=== PATIENT | male | born 1955 | race Caucasian/White ===

== ENCOUNTER 2016-09-28 06:50 | Outpatient (CLI) | payer BC ==
[~2016-09-28] VITALS: Ht 182.9 cm; Wt 95.5 kg
--- NOTE | ~2016-09-28 | HEMODYNAMI ---
PATIENT:LINA PHILLIPS MEDICAL RECORD: [id number] : 57 LOCATION:[facility] ADMISSION DATE: 09/28/16 Generatedon:09/28/201610:34 Patient name: LINA PHILLIPS Patient #: [id number] SSN: : 1955 Date of study: 09/28/2016 Page: Of Hemodynamic Procedure Report Patient Data Patient Demographics Procedure consent was obtained First Name: LINA Gender: Male Last Name: JACQUELINE : 1955 Patient #: [id number] Age: 61 year(s) Race: Unknown Additional ID: [id number] Contact details [address]: [address] [place] [address] State: [place] City: [place] Zip code: [address] Past Medical History Allergies: No known allergies Admission Admission Data Admission Date: 09/28/2016 Admission Time: 6:50 Lab Results Lab Result Date: 09/28/2016 Lab Result Time: 0:00 Biochemistry Name Units Result Min Max BUN mg/dl 13 --(--*-)-- 7 18 Creatinine mg/dl 0.9 --(-*--)-- 0.6 1.3 CBC Name Units Result Min Max Hemoglobin g/dl 14.8 --(-*--)-- 13.5 17.5 Procedure Procedure Types Cath Procedure Diagnostic Procedure C [facility] w/Coronaries PCI Procedure SVG-BMS/ARIS Initial Miscellaneous Procedures Moderate Sedation up to 45 minutes Procedure Description Procedure Date Procedure Date: 09/28/2016 Procedure Start Time: 9:47 Procedure End Time: 10:24 Procedure Staff Name Function Jacinto Glover MD Performing Physician Merline Pacheco RT Scrub Erick Fong RN Nurse Jesus Thakur RT Monitor Procedure Data Cath Procedure Fluoroscopy Diagnostic fluoroscopy Total fluoroscopy Time: 8.4 time: 8.4 min min Diagnostic fluoroscopy Total fluoroscopy dose: dose: 1132 mGy 1132 mGy Contrast Material Contrast Material Type Amount (ml) Isovue 300 170 Entry Location Entry Primary Successful Side Size Upsize Upsize Entry Closure Succes sful Closure Location (Fr) 1 (Fr) 2 (Fr) Remarks Device Remarks Femoral Right 5 Fr 6 Fr artery Short Diagnostic catheters Device Type Used For End Catheter Placement Cordis 5Fr JL 4.0 Left Coronary Catheter (MP) Angiography Diagnostic Infinity 5Fr Right Coronary AR 2 MOD catheter Angiography Diagnostic Infinity 5Fr SVG Angiography IM catheter Cordis 5Fr Pigtail LV Angiography Catheter (MP) Procedure Complications No complications Procedure Medications Medication Administration Route Dosage Oxygen NC 2 l/min Heparin Flush Bag added to field 2 bags (1000units/500ml NS) 0.9% NaCl I.V. 100 ml/hr Fentanyl I.V. 50 mcg Versed I.V. 1 mg Fentanyl I.V. 50 mcg Versed I.V. 1 mg Fentanyl I.V. 50 mcg Fentanyl I.V. 50 mcg Heparin Bolus I.V. 9500 units Cardene I.C. 300 mcg Integrilin (Bolus I.V. 8.5 ml 2mg/ml) Brilinta P.O. 180 mg Hemodynamics Rest HGB: 14.8 (g/dl) Heart Rate: 53 (bpm) Pressure Samples Time Site Value (mmHg) Purpose Heart Use Rate(bpm) 10:00 LV 128/8,27 EDP 62 10:01 AO 135/75(96) Pullback 62 10:01 LV 124/11,16 Pullback 62 Gradients Valve Time Site 1 Site 2 Mean SEP/DFP Peak To Heart Use (mmHg) (sec/min) Peak Rate (mmHg) (bpm) Aortic 10:01 LV AO 0 5 0 62 124/11,16 135/75(96) Calculations Valve P-P Mean Valve Index Valve Source Name Gradient Area Flow (cm2) Aortic 0 0 0 0 Snapshots Pre Cath Intra NCS Post Cath Vital Signs Time Heart Resp SPO2 etCO2 [id number] NIBP (mmHg) Rhythm Pain Sedation Rate (ipm) (%) (mmHg) (mmHg) Status Level (bpm) 9:34:37 57 17 100 0 0 128/77(95) NSR 0 (11) 10(A) , No pain 9:38:55 53 18 98 0 0 116/64(101) NSR 0 (11) 10(A) , No pain 9:43:03 53 18 98 0 0 117/77(86) NSR 0 (11) 10(A) , No pain 9:47:15 57 18 99 0 0 117/68(78) NSR 0 (11) 10(A) , No pain 9:51:27 54 18 90 0 0 119/68(96) NSR 0 (11) 9(A) , No pain 9:55:39 62 19 93 0 0 120/74(97) NSR 0 (11) 9(A) , No pain 9:59:49 58 17 95 0 0 121/82(96) NSR 0 (11) 9(A) , No pain 10:04:03 61 16 99 0 0 132/66(86) NSR 0 (11) 9(A) , No pain 10:08:19 55 16 93 0 0 133/75(100) NSR 0 (11) 9(A) , No pain 10:12:31 60 17 93 0 0 123/79(101) NSR 0 (11) 9(A) , No pain 10:16:43 70 16 98 0 0 142/74(113) NSR 0 (11) 9(A) , No pain 10:21:35 70 19 97 0 0 132/88(115) NSR 0 (11) 9(A) , No pain Medications Time Medication Route Dose Verified Delivered Reason Notes Effectiveness by by 9:35:09 Oxygen NC 2 Erick Erick Per physician l/min Ajit Fong RN RN 9:35:22 Heparin Flush added 2 Erick Erick used for Bag to bags Ajit Fong RN procedure (1000units/500ml field RN NS) 9:40:36 0.9% NaCl I.V. 100 Erick Erick Per physician ml/hr Ajit Fong RN RN 9:40:43 Fentanyl I.V. 50 Erick Erick for sedation mcg Ajit Fong RN RN 9:40:51 Versed I.V. 1 mg Reick Erick for sedation Ajit Fong RN RN 9:47:01 Fentanyl I.V. 50 Erick Erick for sedation mcg Ajit Fong RN RN 9:47:06 Versed I.V. 1 mg Erick Erick for sedation Ajit Fong RN RN 10:02:56 Fentanyl I.V. 50 Erick Erick for sedation mcg Ajit Fong RN RN 10:05:35 Fentanyl I.V. 50 Erick Erick for sedation mcg Ajit Fong RN RN 10:05:48 Heparin Bolus I.V. 9500 Erick Suarez for units Ajit Fong RN anticoagulation RN 10:15:23 Cardene I.C. 300 Erick Kennedyic Per physician ganesh Glover MD RN 10:23:38 Integrilin I.V. 8.5 Erick Suarez for Wasted (Bolus 2mg/ml) ml Ajit Fong RN antiplatelet 1.5mL of RN therapy integrilin bolus 10:25:12 Brilinta P.O. 180 Erick Suarez for mg Ajit Fong RN antiplatelet RN therapy Procedure Log Time Note 9:10:40 Erick Fong RN sent for patient. Start room use. 9:16:41 Time tracking: Regular hours 9:16:46 Plan of Care:Hemodynamics will remain stable., Cardiac rhythm will remain stable., Comfort level will be maintained., Respiratory function will remain adequate., Patient/ family verbilizes understanding of procedure., Procedure tolerated without complication., Recovers from procedure without complications.. 9:24:43 Patient received from Pre/Post Procedure Room to [facility] 1 Alert and oriented. Tansferred to table in Supine position. 9:24:44 Warm blankets applied, and elia hugger turned on for patient comfort. 9:24:44 Correct patient and procedure confirmed by team. 9:24:46 Signed procedure consent form obtained from patient. 9:24:47 ECG and BP/O2 sat monitors applied to patient. 9:24:48 Full Disclosure recording started 9:33:29 Vital chart was started 9:33:37 Baseline sample Acquired. 9:33:45 Rhythm: sinus rhythm 9:34:00 H&P Date Dictated: 09/22/2016 Within 30 days and on chart., H&P Addendum completed by physician on day of procedure. (MUST COMPLETE FOR ALL OUTPATIENTS). 9:34:52 Pre-procedure instructions explained to patient. 9:34:54 Pre-op teaching completed and patient verbalized understanding. 9:34:56 Family in patients room. 9:35:09 Oxygen 2 l/min NC was administered by Erick Fong RN; Per physician; 9:35:22 Heparin Flush Bag (1000units/500ml NS) 2 bags added to field was administered by Erick Fong RN; used for procedure; 9:36:16 Patient NPO since Midnight. 9:36:31 Patient allergic to No known allergies 9:36:48 Is the patient allergic to Iodine/contrast media? No. 9:36:53 Is patient on blood thinner?No 9:36:55 Patient diabetic? No. 9:36:56 ----Pre-sedation anethsthesia assessment.---- 9:37:10 Previous problem with sedation/anesthesia? No ? 9:37:12 Snore? Yes 9:37:13 Sleep apnea? Yes 9:37:17 Deviated septum? No 9:37:18 Opens mouth fully? Yes 9:37:19 Sticks out tongue? Yes 9:37:21 Airway obstruction? No ? 9:37:24 Dentures? No ? 9:37:32 Pre procedure: right dorsailis pedis pulse 1+ Palpable, but thready & weak; easily obliterated 9:37:36 Patient pain scale 0/10 ?. 9:37:41 IV patent on arrival in left hand with 0.9% NaCl at 10ml/hr. 9:38:15 Lab Result : BUN 13 mg/dl 9:38:15 Lab Result : Hemoglobin 14.8 g/dl 9:38:15 Lab Result : Creatinine 0.9 mg/dl 9:38:18 Lab results completed and on chart. 9:38:23 Right groin area was prepped with chlora-prep and draped in sterile fashion 9:38:23 Alarms reviewed by R. N. 9:38:24 Sharps counted by scrub and verified by R.N. 9:38:25 --------ALL STOP TIME OUT------ 9:38:26 Final Timeout: patient, procedure, and site verified with staff and physician. All members of the team are in agreement. 9:38:27 Right groin site verified by team. 9:38:30 Physical assessment completed. ASA score P 2 - A patient with mild systemic disease as per Jacinto Glover MD. 9:38:34 Sedation plan: IV Moderate Sedation Versed, Fentanyl 9:38:37 Use device set Femoral Dx 9:38:38 Acist Syringe opened to sterile field. 9:38:38 Bag Decanter opened to sterile field. 9:38:39 Medline Cath Pack opened to sterile field. 9:38:39 Terumo 5Fr Max Sheath opened to sterile field. 9:38:40 St Yuniel 260cm J .035 wire opened to sterile field. 9:38:41 Acist Hand Control opened to sterile field. 9:38:41 Acist Manifold opened to sterile field. 9:38:41 Diagnostic Infinity 5Fr Multipack catheter opened to sterile field. 9:38:42 Tegaderm 4 x 4 opened to sterile field. 9:40:36 0.9% NaCl 100 ml/hr I.V. was administered by Erick Fong RN; Per physician; 9:40:43 Fentanyl 50 mcg I.V. was administered by Erick Fong RN; for sedation; 9:40:51 Versed 1 mg I.V. was administered by Erick Fong RN; for sedation; 9:44:57 Zero performed for pressure channel P1 9:46:57 Procedure started. 9:47:01 Fentanyl 50 mcg I.V. was administered by Erick Fong RN; for sedation; 9:47:06 Versed 1 mg I.V. was administered by Erick Fong RN; for sedation; 9:47:12 Local anesthetic to right femoral artery with Lidocaine 2% by Jacinto Glover MD.INITIAL ACCESS ONLY 9:47:34 A 5 Fr sheath was inserted into the Right Femoral artery 9:50:06 A Cordis 5Fr JL 4.0 Catheter (MP) was advanced over the wire and used for Left Coronary Angiography. 9:50:48 LCA angiography performed. 9:52:04 Catheter removed. 9:52:54 A Diagnostic Infinity 5Fr AR 2 MOD catheter was advanced over the wire and used for Right Coronary Angiography. 9:53:00 RCA angiography performed. 9:53:03 SVG to RCA angiography performed. 9:54:57 SVG to Circ angiography performed. 9:55:34 Catheter removed. 9:55:43 A Diagnostic Infinity 5Fr IM catheter was advanced over the wire and used for SVG Angiography. 9:55:48 [place] to LAD angiography performed. 9:58:18 Catheter removed. 9:58:26 A Cordis 5Fr Pigtail Catheter (MP) was advanced over the wire and used for LV Angiography. 9:58:32 LV angiography performed. 9:58:35 LV gram done using LYNN 9:58:39 Injector settings: Ml/sec: 10, Volume: 20, 9:59:05 LV hemodynamics recorded. 10:00:59 EF : 45 % 10:01:22 Catheter removed. 10::29 Sheath upsized to a 6 Fr Short. 10:01:37 ACC PCI Site: mRCA has 99% stenosis. 10:01:39 ACC Pre-intervention BHARTI Flow is 3. 10:01:54 6 Fr MB1 guide catheter was inserted over the wire 10:02:20 High Pressure Extension Tubing (Adalberto) opened to sterile field. 10:02:20 Terumo 6Fr Max Sheath opened to sterile field. 10:02:20 Flat.to BasixCompak Inflation Kit opened to sterile field. 10:02:21 Randall BMW [place] 2 J-tip 300cm 0.014 guide wir opened to sterile field. 10:02:21 Medtronic Launcher 6Fr MB 1 guide catheter opened to sterile field. 10:02:56 Fentanyl 50 mcg I.V. was administered by Erick Fong RN; for sedation; 10:05:35 Fentanyl 50 mcg I.V. was administered by Erick Fong RN; for sedation; 10:05:48 Heparin Bolus 9500 units I.V. was administered by Erick Fong RN; for anticoagulation; 10:07:03 BMW2 wire advanced. 10:09:33 Inflation number: 1 A Hawi JAMF Software Cobb 2.0 X 20 balloon was prepped and advanced across the Aorta Right -> Dist RCA, then inflated to 10 AMY for 0:15 (min:sec). 10:09:40 Balloon removed over the wire. 10:12:49 Inflation Number: 2 A Medtronic Integrity 3.0 X 15 stent was prepped and advanced across the Aorta Right -> Dist RCA. The stent was deployed at 14 AMY for 0:11 (min:sec). 10:13:54 Stent catheter was removed intact over wire. 10:15:23 Cardene 300 mcg I.C. was administered by Jacinto Glover MD; Per physician; 10:18:31 Wire removed. 10:18:33 Guide catheter removed. 10:18:42 Cordis 6Fr Exoseal opened to sterile field. 10:20:12 Procedure ended.(Physican Out) 10:21:12 Fluoroscopy time 08.40 minutes. 10:21:48 Fluoroscopy dose: 1132 mGy 10:21:48 Flurop Dose total: 1132 10::53 Contrast amount:Isovue 300 170ml. 10:22:54 Sharps counted by scrub and verified by R.N. 10:23:00 Insertion/operative site no bleeding no hematoma. 10:23:03 Post-op/insertion site Right Femoral artery dressed using a 4 x 4 and Tegaderm. 10:23:19 Post Procedure Pulses reassessed and unchanged 10:23:22 Post procedure: right dorsailis pedis pulse 1+ Palpable, but thready & weak; easily obliterated. 10:23:25 Post procedure rhythm: sinus rhythm 10:23:26 Post procedure instruction explained to patient.Patient verbalizes understanding. 10:23:38 Integrilin (Bolus 2mg/ml) 8.5 ml I.V. was administered by Erick Fong RN; for antiplatelet therapy; Wasted 1.5mL of integrilin bolus 10:23:41 Procedure type changed to Cath procedure, Diagnostic procedure, LHC, LHC w/Coronaries, PCI procedure, SVG-BMS/ARIS Initial, Miscellaneous Procedures, Moderate Sedation up to 45 minutes 10:24:13 Procedure and supply charges have been captured, reviewed, submitted and are correct. 10:24:37 Procedure Complication : No complications 10:24:39 Vital chart was stopped 10:24:40 See physician's report for complete and final results. 10:24:42 Report given to Pre/Post Procedure Room. 10:24:45 Patient transfered to Pre/Post Procedure Room with Stretcher. 10:24:47 Procedure ended. 10:24:47 Full Disclosure recording stopped 10:24:53 ACC-PCI Only Patient was given prescriptions, or instructed by Jacinto Glover MD to start/continue the following medications upon discharge: Brilinta 10:24:55 End room use (Document Last) 10:25:12 Brilinta 180 mg P.O. was administered by Erick Fong RN; for antiplatelet therapy; Intervention Summary Intervention Notes Time ActionType Lesion and Equipment Action# Pressure Duration Attributes Used 10:09:33 Inflate Aorta Right Hawi 1 10 00:15 balloon -> Dist RCA Sci Cobb 2.0 X 20 balloon 10:12:49 [address] stent Aorta Right Amlogictronic 2 14 00:11 -> Dist RCA Integrity 3.0 X 15 stent Device Usage Item Name Manufacture Quantity Catalog Number Hospital Part Current Mini mal Lot# / Charge Number Stock Stock Serial# Code Acist Acist 1 [id number] 064264 905481 629460 20 Syringe Medical Systems Inc Bag Microtek 1 2002S 576311 18487 274052 5 Decanter Medical Inc. Medline Cardinal 1 [id number] 174562 22418 641218 5 Cath Pack Health Terumo 5Fr Terumo 1 [id number] 355859 538057 265623 [address] Yuniel St Yuniel 1 036451 454435 884963 169307 30 260cm J .035 wire Acist Hand Acist 1 86967 488431 298833 805122 5 Control Medical Systems Inc Acist Acist 1 87713 254767 057900 159544 5 Manifold Medical Systems Inc Diagnostic Cardinal 1 [id number] 898098 45154 648719 30 Infinity Health 5Fr Multipack catheter Tegaderm 4 3M 1 1626W 198332 238751 532909 5 x 4 Cordis 5Fr Cardinal 1 641758 5 JL 4.0 Health Catheter (MP) Diagnostic Cardinal 1 [id number] 989226 601147 243671 20 Infinity Health 5Fr AR 2 MOD catheter Diagnostic Cardinal 1 [id number] 285160 228519 324056 5 Infinity Health 5Fr IM catheter Cordis 5Fr Cardinal 1 938914 5 Pigtail Health Catheter (MP) High Merit 1 [id number] 153273 49920 180164 10 Pressure Medical Extension Tubing (Glover) Terumo 6Fr Terumo 1 [id number] 516142 805115 018880 40 Max Sheath Merit Merit 1 HG7791 679486 634928 609444 15 BasixCompak Medical Inflation Kit Randall BMW Randall 1 [id number] 455897 598402 199677 5 [place] 2 Vascular J-tip 300cm 0.014 guide wir Medtronic Medtronic 1 [id number] 732692 40111 165317 1 Launcher 6Fr MB 1 guide catheter Hawi Sci Hawi 1 [id number] 813538 545580 883770 1 [id number] [employer] 2.0 X 20 balloon Medtronic Medtronic 1 [id number] 694715 591182 459488 1 [id number] Integrity 3.0 X 15 stent Cordis 6Fr Cardinal 1 EX600 743641 619754 143059 10 [facility] Health Signature Audit Ewing Stage Time Signature Unsigned Intra-Procedure 09/28/2016 Jesus Thakur 10:34:50 AM RT(R) Signatures Monitor : Jesus Thakur RT Signature : Date : Time : [address] [place] [address]
[2016-09-28 07:40] VITALS: BP 136/84; Ht 182.9 cm; Wt 95.5 kg
[2016-09-28] MEDS ORDERED: HYZAAR 50-12.51 TAB PO (07:56)
[2016-09-28] MEDS ORDERED: PREVACID30 MG PO (07:56)
[2016-09-28] MEDS ORDERED: SIMPONI (07:56)
[2016-09-28] MEDS ORDERED: [UNRECOGNIZED DRUG - OTHER] (07:56)
[2016-09-28] MEDS ORDERED: CRESTOR10 MG PO (07:57)
[2016-09-28] MEDS ORDERED: TOPROL XL100 MG PO (07:57)
[2016-09-28] MEDS ORDERED: ARAVA10 MG PO (07:58)
[2016-09-28] MEDS ORDERED: PLAQUENIL200 MG PO (07:58)
[2016-09-28] MEDS ORDERED: CELEBREX200 MG PO (07:59)
[2016-09-28] MEDS ORDERED: LAMISIL250 MG PO (08:00)
[2016-09-28 08:03] LABS: BASOPHILS 1.1 % (0-2); EOSINOPHILS 5.9 % (0-7); HEMATOCRIT 43.2 % (42.0-54.0); HEMOGLOBIN 14.8 g/dL (13.5-17.5); IMMATURE GRANULOCYTES 0.2 % (0-5); LYMPHOCYTES 33.8 % (15-50); MCH 30.2 pg (26.0-34.0); MCHC 34.3 g/dL (31.0-37.0); MCV 88.2 fL (80.0-100.0); MONOCYTES 9.9 % (2-11); NEUTROPHILS 49.1 % (40-80); PLATELET COUNT 170 10x3/uL (130-400); RDW 12.3 % (11.5-14.5); WBC 4.6 10x3/uL (4.8-10.8)
[2016-09-28 08:30] LABS: CALC OSMOLALITY 282 mosm/kg (275-300); CALCIUM 8.7 mg/dL (8.5-10.1); CARBON DIOXIDE 25.9 mmol/L (21.0-32.0); CHLORIDE - SERUM 108 mmol/L (98-107); CREATININE - SERUM 0.9 mg/dL (0.6-1.3); GLUCOSE 96 mg/dL (74-106); POTASSIUM - SERUM 3.9 mmol/L (3.5-5.1); SODIUM 142 mmol/L (136-145); UREA NITROGEN 13 mg/dL (7-18); eGFR NON AFRICAN AMERICAN > 90 mL/min (90-120)
[2016-09-28] MEDS ORDERED: BAYER CHEWABLE81 MG PO (10:50)
--- NOTE | 2016-09-28 11:19 | NUR ---
1055 LYING FLAT, ALL VITALS WNL. NSR ARATE 76 WNO C/O CHEST PAIN. PULSES PALP X 4. R GROIN 6F EXOSEAL C/D/I WITH NO HEMATOMA OR BLEEDING.
--- NOTE | 2016-09-28 14:35 | NUR ---
1125 LYING FLAT, ALL VITALS WNL. NSR RATE 60 W NO C/O CHEST PAIN. PULSES PALP X 4. DR. GIRON AT BEDSIDE SPEAKING WITH FAMILY ABOUT NEED FOR ANOTHER CATH TO TREAT LEFT SIDE. SPOKE WITH MARY IN HIS OFFICE. RESCHEDULED FOR LEFT SIDE PCI ON TUESDAY OCTOBER 13, 2015 TO ARRIVE AT 0630 FOR 0830 PROCEDURE. AT BEDSIDE. 1230 CONTINUES LYING FLAT, VOIDED 500CC YELLOW URINE VIA URINAL. ALL VITALS REMAIN WNL. NSR RATE 62 W NO C/O CHEST PAIN. PULSES PALP X 4. R GROIN EXOSEAL C/D/I WITH NO HEMATOMA OR BLEEDING. EATING TURKEY SANDWICH WITH ASSIST FROM AT BEDSIDE. 1330 LYING FLAT, VITALS WNL. R GROIN C/D/I. DENIES NEEDS AT THIS TIME. 1400 ELEVATED HOB TO 30DEGREES, WILL MONITOR GROIN FOR BLEEDING.
--- NOTE | 2016-09-28 14:52 | NUR ---
PIV REMOVED FROM LEFT HAND WITH BANDAID APPLIED, AMBULATED TO BATHROOM TO VOID. BACK TO BEDSIDE. R GROIN REMAINS C/D/I AFTER AMBULATION. D/C INSTRUCTIONS DISCUSSED WITH PATIENT AND AT BEDSIDE.
--- NOTE | 2016-09-28 15:13 | NUR ---
WHEELED OUT VIA WHEELCHAIR BY CATH TEAM
--- NOTE | 2016-10-05 10:59 | OP ---
PATIENT NAME: LINA PHILLIPS MEDICAL RECORD: [id number] :57 LOCATION:D.CAT ADMISSION DATE: SURGEON: JACKSON GIRON M.D. DATE OF OPERATION: 09/28/2016 REFERRING PHYSICIAN: Dr. Colette Gallegos at [place], [place]. PROCEDURES PERFORMED: 1. Selective coronary angiography. 2. Left heart catheterization with ventriculogram. 3. Bypass angiography. 4. Left internal mammary injection. 5. PTCA and stent placed at the vein graft to the PDA. INDICATION: A 61-year-old gentleman presents with symptoms of accelerating angina. EQUIPMENT USED: Diagnostic 5-Macedonian JL4, AR modified catheter, mammary catheter, pigtail catheter. INTERVENTION: A 6-Macedonian multipurpose guide, BMW guide wire, 2.0 x 20 mm Chippewa balloon, 3.0 x 15 mm Integrity stent. TECHNIQUE: A 5-Macedonian sheath was inserted in retrograde fashion in the right common femoral artery. Next, selective coronary angiography was performed in standard views using 5-Macedonian JL4 and AR modified catheters. Bypass angiography was performed using an AR modified catheter. The internal mammary was selected with internal mammary catheter. Finally, left heart catheterization was performed using pigtail catheter. CORONARY ANATOMY: 1. Left main: Left main trunk is moderate in caliber. It gives rise to the LAD and circumflex. There is no obstruction. 2. LAD: This vessel is large in caliber. It is 100% occluded beyond the first diagonal branch. The first diagonal branch has been stented in the mid segment. There is a focal 90% in-stent restenosis seen. 3. Circumflex: This vessel is moderate in caliber. The first lateral branch is 100% occluded at the origin. The remainder of the circumflex has mild irregularities. 4. Right coronary: This vessel is 100% occluded in mid segment. 5. Saphenous vein graft to PDA. This is a large-caliber graft. The proximal body demonstrates an ulcerated 99% stenosis. There appears to be a diffuse 50% in-stent restenosis seen in the mid body of the graft. 6. Saphenous vein graft to obtuse marginal branch. This graft is diffusely disease, but otherwise patent. It goes to a small branch of the circumflex. 7. Left internal mammary artery to LAD: This graft is widely patent throughout its course. The distal LAD is of good caliber and has no obstruction. 8. Left ventricle: Left ventricle is upper limits of normal size. There is mild hypokinesis noted. Estimated ejection fraction is in the order of 45%. DESCRIPTION OF INTERVENTION: A 100 units per kilogram of heparin was infused. A 6-Macedonian sheath was placed in the right common femoral artery. Next, a 6-Macedonian multipurpose guide was advanced and engaged in the vein graft to the PDA. Next, a BMW guide wire was placed in the distal body of the graft. The lesion was predilated with a 2.0 x 20 mm Chippewa balloon at 12 atmospheres. OPERATIVE REPORT [id number] LINA PHILLIPS Injection revealed sabianist of flow. At this point, a 3.0 x 15 mm Integrity stent was placed across the stenosis and deployed at 14 atmospheres. Injections revealed the stent to be widely patent. However, at this point, the patient had no refill in the graft. He developed ST elevation. At this point, 300 mcg of Cardene was given intracoronary. At this point, the ST elevation resolved and flow was restored to the graft. Final injection revealed brisk flow through the graft and 0% residual stenosis in the stented segment. There appeared to be moderate restenosis involving the stents in the mid body graft. However, it was felt that further dilation might cause no refill at this point. At this point, the guidewire was removed. IMPRESSION: Successful percutaneous transluminal coronary angioplasty and stent in the vein graft to the PDA. PLAN: I will likely stage the diagonal lesion and bring him back in 1 week. I may consider placing a filter wire at that point in the vein graft to the PDA to perform stenting to the in-stent restenosis as well. TRANSINT:[id number] Voice Confirmation ID: [id number] DOCUMENT ID: [id number] JACKSON GIRON M.D. at 1059 CC: [id number] DICTATION DATE: 09/28/16 103 SENIOR PIPING DESIGNER: 09/28/169 DEP CLI 09/28/16 [facility] [address] [place] [address]
== END 2016-09-28 15:14 | disposition home or self-care (01) ==
LOC: D.CATH 06:50 → EDBD 09:00 → D.CATH 15:14
PROVIDERS: Internal Medicine Cardiovascular Disease
DX: I25.710 Atherosclerosis of autologous vein coronary artery bypass graft(s) with unstable angina pectoris (principal); I25.110 Atherosclerotic heart disease of native coronary artery with unstable angina pectoris; Z01.812 Encounter for preprocedural laboratory examination

== ENCOUNTER 2016-10-12 06:33 | Outpatient (CLI) | payer BC ==
[~2016-10-12] VITALS: Ht 182.9 cm; Wt 95.5 kg
--- NOTE | ~2016-10-12 | HEMODYNAMI ---
PATIENT:LINA PHILLIPS MEDICAL RECORD: [id number] : 57 [id number] ADMISSION DATE: 10/12/16 Generatedon:10/12/20168:12 Patient name: LINA PHILLIPS Patient #: [id number] SSN: : 1955 Date of study: 10/12/2016 Page: Of Hemodynamic Procedure Report Patient Data Patient Demographics Procedure consent was obtained First Name: LINA Gender: Male Last Name: JACQUELINE : 1955 Patient #: [id number] Age: 61 year(s) Race: Unknown Additional ID: [id number] Contact details [address]: [address] [place] [address] State: [place] City: [place] Zip code: [address] Past Medical History Allergies: No known allergies Admission Admission Data Admission Date: 10/12/2016 Admission Time: 6:33 Lab Results Lab Result Date: 10/12/2016 Lab Result Time: 0:00 Biochemistry Name Units Result Min Max BUN mg/dl 15 --(--*-)-- 7 18 Creatinine mg/dl 0.9 --(-*--)-- 0.6 1.3 CBC Name Units Result Min Max Hemoglobin g/dl 14.8 --(-*--)-- 13.5 17.5 Procedure Procedure Types Cath Procedure Diagnostic Procedure LHC Coronaries only PCI Procedure PTCA Initial Miscellaneous Procedures Moderate Sedation up to 45 minutes Procedure Description Procedure Date Procedure Date: 10/12/2016 Procedure Start Time: 7:49 Procedure End Time: 8:11 Procedure Staff Name Function Jacinto Glover MD Performing Physician Sola Cornejo RN Nurse Andrei Lugo RT Scrub Jesus Thakur RT Monitor Procedure Data Cath Procedure Fluoroscopy Diagnostic fluoroscopy Total fluoroscopy Time: 4.9 time: 4.9 min min Diagnostic fluoroscopy Total fluoroscopy dose: 825 dose: 825 mGy mGy Contrast Material Contrast Material Type Amount (ml) Isovue 300 88 Entry Location Entry Primary Successful Side Size Upsize Upsize Entry Closure Succes sful Closure Location (Fr) 1 (Fr) 2 (Fr) Remarks Device Remarks Femoral Right 6 Fr Exoseal artery Short Diagnostic catheters Device Type Used For End Catheter Placement Diagnostic Infinity 5Fr SVG Angiography MPA-2 catheter Procedure Complications No complications Procedure Medications Medication Administration Route Dosage Oxygen NC 2 l/min Heparin Flush Bag added to field 2 bags (1000units/500ml NS) Lidocaine 2% added to field 20 Versed I.V. 1 mg Fentanyl I.V. 50 mcg Versed I.V. 1 mg Fentanyl I.V. 50 mcg Fentanyl I.V. 50 mcg Heparin Bolus 9500 units Nitroglycerin IC/IA I.C. 100 mcg Hemodynamics Rest HGB: 14.8 (g/dl) Heart Rate: 68 (bpm) Snapshots Pre Cath Intra NCS Post Cath Vital Signs Time Heart Resp SPO2 NIBP (mmHg) Rhythm Pain Sedation Rate (ipm) (%) Status Level (bpm) 7:32:13 68 16 99 139/81(93) NSR 0 (11) 10(A) , No pain 7:36:25 67 14 100 128/87(98) NSR 0 (11) 10(A) , No pain 7:40:37 61 15 100 119/77(92) NSR 0 (11) 10(A) , No pain 7:44:47 62 16 98 115/74(90) NSR 0 (11) 10(A) , No pain 7:48:57 56 17 98 105/69(80) NSR 0 (11) 9(A) , No pain 7:52:56 56 16 98 120/86(104) NSR 0 (11) 9(A) , No pain 7:57:08 58 14 96 111/70(85) NSR 0 (11) 9(A) , No pain 8:01:12 59 18 96 120/80(100) NSR 0 (11) 9(A) , No pain 8:05:22 60 18 96 124/72(83) NSR 0 (11) 9(A) , No pain 8:09:01 59 18 95 118/75(96) NSR 0 (11) 9(A) , No pain Medications Time Medication Route Dose Verified Delivered Reason Notes Effectiveness by by 7:33:42 Oxygen NC 2 Jacinto Sola Per physician l/min Adalberto Cornejo RN 7:33:53 Heparin Flush added 2 Jacinto Jacinto used for Bag to bags Adalberto Glover MD procedure (1000units/500ml field NS) 7:33:57 Lidocaine 2% added 20ml Jacinto Jacinto used for to vial Adalberto Glover MD procedure field 7:42:31 Versed I.V. 1 mg Jacinto Sola for sedation Adalberto Cornejo RN 7:42:36 Fentanyl I.V. 50 Jacinto Sola for sedation mcg Adalberto Cornejo RN 7:45:19 Versed I.V. 1 mg Jacinto Sola for sedation Adalberto Cornejo RN 7:45:29 Fentanyl I.V. 50 Jacinto Sola for sedation mcg Adalberto Cornejo RN 7:47:40 Fentanyl I.V. 50 Jacinto Sola for sedation mcg Adalberto Cornejo RN 7:53:29 Heparin Bolus 9500 Jacinto Sola for dose units Adalberto Cornejo RN anticoagulation verified with dr glover 8:00:53 Nitroglycerin I.C. 100 Jacinto Jacinto for IC/IA mcg Adalberto Glover MD vasodilation Procedure Log Time Note 7:16:00 Jesus Johnstongunner RT(R) sent for patient. Start room use. 7:16:01 Time tracking: Regular hours 7:16:04 Plan of Care:Hemodynamics will remain stable., Cardiac rhythm will remain stable., Comfort level will be maintained., Respiratory function will remain adequate., Patient/ family verbilizes understanding of procedure., Procedure tolerated without complication., Recovers from procedure without complications.. 7:24:50 Patient received from Pre/Post Procedure Room to CCL 2 Alert and oriented. Tansferred to table in Supine position. 7:25:00 Warm blankets applied, and elia hugger turned on for patient comfort. 7:25:00 Correct patient and procedure confirmed by team. 7:25:01 Signed procedure consent form obtained from patient. 7:25:02 ECG and BP/O2 sat monitors applied to patient. 7:31:10 Vital chart was started 7:33:42 Oxygen 2 l/min NC was administered by Sola Cornejo RN; Per physician; 7:33:53 Heparin Flush Bag (1000units/500ml NS) 2 bags added to field was administered by Jacinto Glover MD; used for procedure; 7:33:57 Lidocaine 2% 20ml vial added to field was administered by Jacinto Glover MD; used for procedure; 7:36:13 Baseline sample Acquired. 7:36:17 Rhythm: sinus rhythm 7:36:18 Full Disclosure recording started 7:38:45 H&P Date Dictated: 09/28/2016 Within 30 days and on chart., H&P Addendum completed by physician on day of procedure. (MUST COMPLETE FOR ALL OUTPATIENTS). 7:38:46 Pre-procedure instructions explained to patient. 7:38:47 Pre-op teaching completed and patient verbalized understanding. 7:38:49 Family in patients room. 7:38:51 Patient NPO since Midnight. 7:38:58 Patient allergic to No known allergies 7:39:04 Is patient on blood thinner?Yes 7:39:08 ACC The patient was administered the following blood thiners within the last 24 hours: ACCAspirin, ACCBrilinta 7:39:11 Patient diabetic? No. 7:39:11 ----Pre-sedation anethsthesia assessment.---- 7:39:14 Previous problem with sedation/anesthesia? No ? 7:39:15 Snore? Yes 7:39:16 Sleep apnea? Yes 7:39:17 Deviated septum? No 7:39:19 Opens mouth fully? Yes 7:39:20 Sticks out tongue? Yes 7:40:22 Airway obstruction? No ? 7:40:24 Dentures? No ? 7:40:28 Pre procedure: right dorsailis pedis pulse 2+ Normal; easily identifiable; not easily obliterated 7:40:31 Patient pain scale 0/10 ?. 7:40:37 IV patent on arrival in left hand with 0.9% NaCl at 10ml/hr. 7:40:56 Lab Result : BUN 15 mg/dl 7:40:56 Lab Result : Creatinine 0.9 mg/dl 7:40:56 Lab Result : Hemoglobin 14.8 g/dl 7:40:58 Lab results completed and on chart. 7:41:01 Right groin area was prepped with chlora-prep and draped in sterile fashion 7:41:02 Alarms reviewed by RLeena N. 7:41:03 Sharps counted by scrub and verified by RLeenaNLeena 7:42:14 --------ALL STOP TIME OUT------ 7:42:15 Final Timeout: patient, procedure, and site verified with staff and physician. All members of the team are in agreement. 7:42:16 Right groin site verified by team. 7:42:19 Physical assessment completed. ASA score P 2 - A patient with mild systemic disease as per Jacinto Glover MD. 7:42:22 Sedation plan: IV Moderate Sedation Versed, Fentanyl 7:42:31 Versed 1 mg I.V. was administered by Sola Cornejo RN; for sedation; 7:42:36 Fentanyl 50 mcg I.V. was administered by Sola Cornejo RN; for sedation; 7:42:39 Use device set Femoral PCI 7:42:40 Acist Syringe opened to sterile field. 7:42:40 Acist Hand Control opened to sterile field. 7:42:40 Bag Decanter opened to sterile field. 7:42:41 Medline Cath Pack opened to sterile field. 7:42:41 Terumo 6Fr [place] Sheath opened to sterile field. 7:42:42 St Yuniel 260cm J .035 wire opened to sterile field. 7:42:42 Merit BasixCompak Inflation Kit opened to sterile field. 7:42:43 Acist Manifold opened to sterile field. 7:42:43 Tegaderm 4 x 4 opened to sterile field. 7:42:51 Randall BMW [place] 2 J-tip 300cm 0.014 guide wir opened to sterile field. 7:43:22 High Pressure Extension Tubing (Adalberto) opened to sterile field. 7:45:19 Versed 1 mg I.V. was administered by Sola Cornejo RN; for sedation; 7:45:29 Fentanyl 50 mcg I.V. was administered by Sola Cornejo RN; for sedation; 7:46:07 Cordis 6FR XBLAD 3.5 guide catheter opened to sterile field. 7:47:40 Fentanyl 50 mcg I.V. was administered by Sola Cornejo RN; for sedation; 7:49:05 Procedure started. 7:49:43 Zero performed for pressure channel P1 7:49:55 Local anesthetic to right femoral artery with Lidocaine 2% by Jacinto Glover MD.INITIAL ACCESS ONLY 7:50:04 A 6 Fr Short sheath was inserted into the Right Femoral artery 7:52:28 6 Fr XBLAD 3.5 guide catheter was inserted over the wire 7:52:46 Procedure type changed to Cath procedure, Diagnostic procedure, LHC, Coronaries only, PCI procedure, PTCA Initial, Miscellaneous Procedures, Moderate Sedation up to 45 minutes 7:53:29 Heparin Bolus 9500 units was administered by Sola Cornejo RN; for anticoagulation; dose verified with dr glover 7:54:16 ACC PCI Site: Diag1 has 90% stenosis. 7:54:19 ACC Pre-intervention BHARTI Flow is 3. 7:54:27 BMW2 wire advanced. 7:58:01 Inflation number: 1 A [place] Sci [place] 2.5 X 15 balloon was prepped and advanced across the 1st Diag1, then inflated to 12 AMY for 0:19 (min:sec). 7:58:41 Inflation number: 2 The O[place]ala Sci [place] 2.5 X 15 balloon was reinflated across the 1st Diag1, to 12 AMY for 0:24 (min:sec). 7:59:58 Inflation number: 3 The Oglala Sci [place] 2.5 X 15 balloon was reinflated across the 1st Diag1, to 14 AMY for 0:34 (min:sec). 8:00:53 Nitroglycerin IC/IA 100 mcg I.C. was administered by Jacinto Glover MD; for vasodilation; 8:02:34 Balloon removed over the wire. 8:02:36 Wire removed. 8:02:37 Guide catheter removed. 8:03:20 A Diagnostic Infinity 5Fr MPA-2 catheter was advanced over the wire and used for SVG Angiography. 8:03:44 Cordis 6Fr Exoseal opened to sterile field. 8:03:51 SVG to RCA angiography performed. 8:05:50 Catheter removed. 8:06:03 Contrast amount:Isovue 300 88ml. 8:06:09 Sheath removed intact; hemostasis achieved with Exoseal to the Right Femoral artery. 8:06:11 Procedure ended.(Physican Out) 8:07:11 Fluoroscopy time 04.90 minutes. 8:07:16 Flurop Dose total: 825 8:07:16 Fluoroscopy dose: 825 mGy 8:07:17 Sharps counted by scrub and verified by R.N. 8:07:18 Insertion/operative site no bleeding no hematoma. 8:07:22 Post-op/insertion site Right Femoral artery dressed using a 4 x 4 and Tegaderm. 8:07:25 Post right femoral artery:stable 8:07:26 Post Procedure Pulses reassessed and unchanged 8:07:29 Post procedure: right dorsailis pedis pulse 1+ Palpable, but thready & weak; easily obliterated. 8:07:35 Post procedure rhythm: sinus rhythm 8:07:37 Post procedure instruction explained to patient.Patient verbalizes understanding. 8:08:14 Procedure and supply charges have been captured, reviewed, submitted and are correct. 8:08:18 Procedure Complication : No complications 8:08:22 Vital chart was stopped 8:08:23 See physician's report for complete and final results. 8:08:25 Report given to Pre/Post Procedure Room. 8:08:28 Patient transfered to Pre/Post Procedure Room with Stretcher. 8:11:19 Procedure ended. 8:11:19 Full Disclosure recording stopped 8:11:25 End room use (Document Last) Intervention Summary Intervention Notes Time ActionType Lesion and Equipment Action# Pressure Duration Attributes Used 7:58:01 Inflate 1st Diag1 Oglala 1 12 00:19 balloon Sci Napa 2.5 X 15 balloon 7:58:41 Reinflate 1st Diag1 Oglala 2 12 00:24 balloon Sci [place]a 2.5 X 15 balloon 7:59:58 Reinflate 1st Diag1 Oglala 3 14 00:34 balloon Sci [place] 2.5 X 15 balloon Device Usage Item Name Manufacture Quantity Catalog Number Hospital Part Current Mini mal Lot# / Charge Number Stock Stock Serial# Code Acist Acist 1 34559 087031 504527 [id number] 20 Syringe Medical Systems Inc Acist Hand Acist 1 28871 855506 353908 475256 5 Control Medical Systems Inc Bag Microtek 1 2002S 620842 42122 930669 5 Decanter Medical Inc. Medline Cardinal 1 [id number] 769573 86105 169663 5 Cath MENABANQER Terumo 6Fr Terumo 1 THQ436 534361 017384 088875 [address] Yuniel 1 721403 419232 439097 767054 30 260cm J .035 wire Merit Merit 1 [id number] 787062 840717 223376 15 BasixPayClipk Medical Inflation Kit Acist Acist 1 80220 127425 785385 660369 5 Touchstorm Medical [employer] Inc Tegaderm 4 3M 1 1626W 834252 478417 963751 5 x 4 Randall BMW Randall 1 [id number] 136845 693961 654784 5 [place] 2 Vascular J-tip 300cm 0.014 guide wir High Merit 1 [id number] 854151 91462 625227 10 Pressure Medical Extension Tubing (Glover) Cordis 6FR Cardinal 1 [id number] 735620 343602 064460 10 XBLAD 3.5 Health guide catheter Oglala Sci Oglala 1 [id number] 122490 059087 368036 1 [id number] AppFog 2.5 X 15 balloon Diagnostic Cardinal 1 [id number] 239226 285274 449744 5 [employer] 5Fr MPA-2 catheter Cordis 6Fr Cardinal 1 EX600 848807 293576 290136 10 MomentFeed Signature Audit [place] Stage Time Signature Unsigned Intra-Procedure 10/12/2016 Jesus Thakur 8:12:03 AM RT(R) Signatures Monitor : Jesus Thakur RT Signature : Date : Time : [place] [id number] [place] [address]
--- NOTE | ~2016-10-12 | OP ---
PATIENT NAME: LINA PHILLIPS MEDICAL RECORD: [id number] :57 LOCATION:D[facility] ADMISSION DATE: SURGEON: JACKSON GIRON M.D. DATE OF OPERATION: 10/12/2016 REFERRING PHYSICIAN: Dr. Colette Gallegos at [place], [place]. PROCEDURES PERFORMED: 1. PTCA of the diagonal branch. 2. Bypass angiography. INDICATION: A 61-year-old gentleman who presents with symptoms of angina. He recently underwent stenting to the vein graft to the PDA. He returns today for completion of staged procedure. EQUIPMENT USED: A 6-Armenian XB LAD guide, BMW guide wire, 2.5 x 15 mm Divide balloon, multipurpose catheter. TECHNIQUE: A 6-Armenian sheath was placed in retrograde fashion in the right common femoral artery. Next, 100 units per kilogram of heparin was infused. A 6-Armenian XB LAD guide was advanced and engaged in the left main coronary artery. Injections revealed a 90% in-stent restenosis of the diagonal branch. The BMW guide wire was placed in the distal vessel. Next, a 2.5 x 15 mm balloon was advanced. Inflation was performed at 10, 12, and 14 atmospheres. Injections revealed a less than 10% residual stenosis. There is brisk flow in the distal aspect of the diagonal. At this point, the wire and guide were removed. Next, a multipurpose catheter was advanced and engaged to the vein graft to the PDA. Injections revealed the recently stented area was patent. There is no evidence of any thrombus throughout the graft. He did have some restenosis in the mid stent that was about 40%. At this point, the catheter was removed. IMPRESSION: 1. Successful percutaneous transluminal coronary angioplasty of the diagonal for in-stent restenosis. 2. Successful stenting this past week of the vein graft to the PDA with no residual thrombus. TRANSINT:[id number] Voice Confirmation ID: [id number] DOCUMENT ID: [id number] JACKSON GIRON M.D. CC: [id number] DICTATION DATE: 10/12/16815 SPRAY RIG OPERATOR: 10/12/16 174 DEP CLI 10/12/16 [facility] [address] [place] [address]
[~2016-10-12 06:33] MED LIST: ARAVA10 MG PO; BAYER CHEWABLE81 MG PO; CELEBREX200 MG PO; CRESTOR10 MG PO; HYZAAR 50-12.51 TAB PO; LAMISIL250 MG PO; PLAQUENIL200 MG PO; PREVACID30 MG PO; SIMPONI; TOPROL XL100 MG PO; [UNRECOGNIZED DRUG - OTHER]
[2016-10-12] MEDS ORDERED: BRILINTA90 MG PO (06:50)
[2016-10-12 06:53] VITALS: BP 121/69; Ht 182.9 cm; Wt 95.5 kg
[2016-10-12 07:05] LABS: BASOPHILS 0.8 % (0-2); EOSINOPHILS 4.2 % (0-7); HEMATOCRIT 43.2 % (42.0-54.0); HEMOGLOBIN 14.8 g/dL (13.5-17.5); IMMATURE GRANULOCYTES 0.2 % (0-5); LYMPHOCYTES 29.1 % (15-50); MCH 30.1 pg (26.0-34.0); MCHC 34.3 g/dL (31.0-37.0); MCV 87.8 fL (80.0-100.0); MEAN PLATELET VOLUME 9.9 fL (7.4-10.4); MONOCYTES 12.8 % (2-11); NEUTROPHILS 52.9 % (40-80); PLATELET COUNT 175 10x3/uL (130-400); RBC 4.92 10x6/uL (4.20-6.10); RDW 12.3 % (11.5-14.5); WBC 5.1 10x3/uL (4.8-10.8)
[2016-10-12 07:21] LABS: CALC OSMOLALITY 279 mosm/kg (275-300); CALCIUM 8.9 mg/dL (8.5-10.1); CHLORIDE - SERUM 106 mmol/L (98-107); CREATININE - SERUM 0.9 mg/dL (0.6-1.3); GLUCOSE 99 mg/dL (74-106); POTASSIUM - SERUM 3.9 mmol/L (3.5-5.1); SODIUM 140 mmol/L (136-145); UREA NITROGEN 15 mg/dL (7-18); eGFR NON AFRICAN AMERICAN > 90 mL/min (90-120)
--- NOTE | 2016-10-12 08:45 | NUR ---
IN BED WITH HEAD FLAT ON PILLOW. RIGHT GROIN 6F EXOSEAL CDI, NO BLEEDING OR HEMATOMA NOTED. ROOM AIR, NO RESP DISTRESS NOTED. NSR @ 65 ON MONITOR. NO C/O CHEST PAIN OR NAUSEA. INSTRUCTED PT TO KEEP RIGHT LEG STRAIGHT.
--- NOTE | 2016-10-12 09:15 | NUR ---
ON ROOM AIR, NO RESP DISTRESS NOTED. RIGHT GROIN 6F EXOSEAL CDI, NO BLEEDING OR HEMATOMA NOTED. VSS. NO C/O AT THIS TIME. CALL LIGHT WITHIN REACH.
--- NOTE | 2016-10-12 09:30 | NUR ---
QUIETLY RESTING IN BED. RIGHT GROIN 6F EXOSEAL CDI, NO BLEEDING OR HEMATOMA NOTED. ROOM AIR, NO RESP DISTRESS NOTED. NO C/O CHEST PAIN OR NAUSEA. VSS. WILL CONTINUE TO MONITOR.
--- NOTE | 2016-10-12 10:00 | NUR ---
RESTING QUIETLY WITH CPAP IN PLACE, NO RESP DISTRESS NOTED. VSS. RIGHT GROIN 6F EXOSEAL CDI, NO BLEEDING OR HEMATOMA NOTED. NO C/O AT THIS TIME. WILL CONTINUE TO MONITOR.
--- NOTE | 2016-10-12 10:30 | NUR ---
RESTING QUIETLY WITH EYES CLOSED. RIGHT GROIN 6F EXOSEAL CDI, NO BLEEDING OR HEMATOMA NOTED. 2L NC, NO RESP DISTRESS NOTED. VSS. NO C/O AT THIS TIME. WILL CONTINUE TO MONITOR.
--- NOTE | 2016-10-12 11:00 | NUR ---
RESTING WITH CPAP IN PLACE. RIGHT GROIN 6F EXOSEAL CDI, NO BLEEDING OR HEMATOMA NOTED. VSS. WILL CONTINUE TO MONITOR.
--- NOTE | 2016-10-12 12:19 | NUR ---
HOB ELEVATED, WILL MONITOR R GROIN FOR BLEEDING. ALL VITALS WNL. DENIES NEEDS AT THIS TIME.
--- NOTE | 2016-10-12 12:49 | NUR ---
LEFT HAND PIV D/C'D WITH CATHETER INTACT, BAND AID TO SITE. UP TO BEDSIDE TO GET DRESSED.
--- NOTE | 2016-10-12 12:51 | NUR ---
UP TO RESTROOM TO VOID.
--- NOTE | 2016-10-12 12:57 | NUR ---
DISCHARGE INSTRUCTIONS GIVEN, VERBALIZED UNDERSTANDING.
--- NOTE | 2016-10-12 13:02 | NUR ---
TAKEN OUT VIA WHEELCHAIR BY CATH REPLANTING MACHINE CREW. LEFT FACILITY WITH FAMILY MEMBER AND ALL PERSONAL BELONGINGS.
== END 2016-10-12 13:02 | disposition home or self-care (01) ==
LOC: D.CATH 06:33
PROVIDERS: Internal Medicine Cardiovascular Disease
DX: I25.119 Atherosclerotic heart disease of native coronary artery with unspecified angina pectoris (principal); I10 Essential (primary) hypertension; E78.5 Hyperlipidemia, unspecified; Z01.812 Encounter for preprocedural laboratory examination

== ENCOUNTER → 2018-10-01 09:34 | Outpatient (CLI) | payer BC ==
[2016-10-12 06:53] VITALS: BMI 28.5
[~2018-10-01 09:34] MED LIST changes: +BRILINTA90 MG PO; +HYDROCODON-ACE1 EA10 PO; +PLAVIX75 MG PO; +PREDNISONE10 MG PO; +XARELTO10 MG PO
--- NOTE | 2018-10-11 16:41 | ST ---
PATIENT:LINA PHILLIPS MEDICAL RECORD: [id number] SEX: M LOCATION:[facility] ORDER #: ADMISSION DATE: 10/01/18 AGE OF PATIENT: 63 REFERRING PHYSICIAN: INTERPRETING PHYSICIAN: ERIK LARA MD DATE OF SERVICE: 10/01/2018 PROCEDURE: Nuclear stress test. INDICATION: Angina, coronary artery disease, status post coronary artery bypass graft surgery, hypertension. He was exercised on standard Lexiscan protocol with 33 mCi of sestamibi injected at peak stress, 11 mCi used previously for rest images. FINDINGS: Gated SPECT reveals preserved ejection fraction at 63% with decreased thickening and brightening throughout the inferior segments. SPECT imaging Cardiolite was used as myocardial perfusion agent. There is a mixed perfusion defect inferiorly, this includes the basal, mid apical inferior segments. This is partially fixed, partially reversible, extending into the apex. The remaining segments are with homogeneous uptake at rest and stress. OVERALL IMPRESSION: 1. This is an abnormal nuclear stress test, mixed perfusion defect inferiorly and apically, partially fixed, partially reversible, but there is reversibility throughout the entire inferior and apical segments. 2. Gated SPECT reveals a preserved ejection fraction greater than 60% in this patient with ongoing symptomatology. The current scan does suggest presence of hemodynamically significant coronary artery disease. We will proceed with coronary angiography as follow up study. TRANSINT:[id number] Voice Confirmation ID: [id number] DOCUMENT ID: [id number] ERIK LARA MD at 1641 CC: [id number] DICTATION DATE: 10/02/18 1628 AVICULTURIST: 10/03/18 0503 DEP CLI 10/01/18 [place] [id number]
== END | disposition home or self-care (01) ==
LOC: D.HCCARDIO 09:34
PROVIDERS: ATTEND Internal Medicine Cardiovascular Disease
DX: I25.10 Atherosclerotic heart disease of native coronary artery without angina pectoris (principal)

== ENCOUNTER 2018-10-22 11:08 | Outpatient (CLI) | payer BC ==
[~2018-10-22] VITALS: Ht 182.9 cm; Wt 89.5 kg
--- NOTE | ~2018-10-22 | HEMODYNAMI ---
PATIENT:LINA PHILLIPS MEDICAL RECORD: [id number] : 57 LOCATION:[facility] ADMISSION DATE: 10/22/18 Generatedon:10/22/201815:25 Patient name: LINA PHILLIPS Patient #: [id number] SSN: : 1955 Date of study: 10/22/2018 Page: Of Hemodynamic Procedure Report Patient Data Patient Demographics Procedure consent was obtained First Name: LINA Gender: Male Last Name: JACQUELINE : 1955 Patient #: [id number] Age: 63 year(s) Race: Unknown Additional ID: [id number] Contact details Address: [address] [place] [address] State: [place] City: [place] Zip code: [address] Past Medical History Allergies: No known allergies Admission Admission Data Admission Date: 10/22/2018 Admission Time: 11:08 Procedure Procedure Types Cath Procedure Diagnostic Procedure LHC LHC w/Coronaries w/Grafts Sedation Charges Moderate Sedation up to 15 minutes PCI Procedure PTCA PTCA Initial Procedure Description Procedure Date Procedure Date: 10/22/2018 Procedure Start Time: 14:59 Procedure End Time: 15:24 Procedure Staff Name Function Jacinto Glover MD Performing Physician Lennox Alcazar RT Scrub Jeff Aguirre RN Nurse Aliyah Menjivar RT Monitor Merlinecase Pacheco RT Monitor Procedure Data Cath Procedure Fluoroscopy Diagnostic fluoroscopy Total fluoroscopy Time: 6 time: 6 min min Diagnostic fluoroscopy Total fluoroscopy dose: 491 dose: 491 mGy mGy Contrast Material Contrast Material Type Amount (ml) Isovue 370 130 Entry Location Entry Primary Successful Side Size Upsize Upsize Entry Closure Succes sful Closure Location (Fr) 1 (Fr) 2 (Fr) Remarks Device Remarks Femoral Right 5 Fr 6 Fr Exoseal artery Short Estimated blood loss: 10 ml Diagnostic catheters Device Type Used For End Catheter Placement MULTIPACK JL 4.0 5Fr Procedure catheter DIAGNOSTIC AR MOD 5Fr Right Coronary Catheter ([id number]) Angiography DIAGNOSTIC AR MOD 5Fr SVG Angiography Catheter ([id number]) DIAGNOSTIC AR MOD 5Fr SVG Angiography Catheter ([id number]) DIAGNOSTIC IM 5Fr Internal mammary catheter ([id number]) arteriography MULTIPACK Pigtail 5 Fr LV Angiography catheter Procedure Complications No complications Procedure Medications Medication Administration Route Dosage 0.9% NaCl I.V. 100 ml/hr Oxygen etCO2 Nasal cannula 2 l/min Heparin Flush Bag added to field 2 bags (1000units/500ml NS) Lidocaine 2% added to field 20 Versed I.V. 2 mg Fentanyl I.V. 100 mcg Heparin Bolus I.V. 7000 units Plavix P.O. 600 mg Hemodynamics Rest Heart Rate: 60 (bpm) Pressure Samples Time Site Value (mmHg) Purpose Heart Use Rate(bpm) 15:10 LV 151/7,21 EDP 70 15:10 AO 152/80(111) Pullback 68 15:10 LV 148/0,39 Pullback 68 Gradients Valve Time Site 1 Site 2 Mean SEP/DFP Peak To Heart Use (mmHg) (sec/min) Peak Rate (mmHg) (bpm) Aortic 15:10 LV AO 0 8 0 68 148/0,39 152/80(111) Calculations Valve P-P Mean Valve Index Valve Source Name Gradient Area Flow (cm2) Aortic 0 0 0 0 Snapshots Pre Cath Intra NCS Post Cath Vital Signs Time Heart Resp SPO2 etCO2 NIBP (mmHg) Rhythm Pain Sedation Rate (ipm) (%) (mmHg) Status Level (bpm) 14:48:16 61 12 99 0 143/80(121) NSR 0 (11) 10(A) , No pain 14:52:32 55 10 99 38.5 140/78(109) NSR 0 (11) 10(A) , No pain 14:56:48 59 19 89 29.6 136/72(91) NSR 0 (11) 10(A) , No pain 15:01:00 56 14 94 21.5 138/79(102) NSR 0 (11) 10(A) , No pain 15:05:10 68 17 97 43 149/91(112) NSR 0 (11) 10(A) , No pain 15:09:28 64 19 97 29.6 138/80(105) NSR 0 (11) 9(A) , No pain 15:13:40 68 11 98 42.3 133/82(105) NSR 0 (11) 9(A) , No pain 15:17:54 67 11 96 37.1 127/70(104) NSR 0 (11) 9(A) , No pain 15:22:01 73 13 99 39.3 144/78(110) NSR 0 (11) 9(A) , No pain Medications Time Medication Route Dose Verified Delivered Reason Notes Effectiveness by by 14:51:11 0.9% NaCl I.V. 100 Jeff Jeff Per physician ml/hr Carla Aguirre RN RN 14:51:22 Oxygen etCO2 2 Jeff Jeff for low 02 sats Nasal l/min Carla Aguirre cannula RN RN 14:51:34 Heparin Flush added 2 Jeff Jeff used for Bag to bags Carla Aguirre procedure (1000units/500ml RN RN NS) 14:51:44 Lidocaine 2% added 20ml Jeff Jeff for local to vial Carla Aguirre anesthetic RN RN 14:55:45 Versed I.V. 2 mg Jeff Jeff for sedation Carla Aguirre RN RN 14:55:54 Fentanyl I.V. 100 Jeff Jeff for sedation mcg Carla Aguirre RN RN 15:16:17 Heparin Bolus I.V. 7,000 Jeff Jeff for units Carla Aguirre anticoagulation RN RN 15:22:55 Plavix P.O. 600 Jeff Jeff for mg Carla Aguirre antiplatelet RN RN therapy Procedure Log Time Note 14:29:49 Time tracking: Regular hours (M-F 7:00 - 5:00) 14:29:53 Plan of Care:Hemodynamics will remain stable., Cardiac rhythm will remain stable., Comfort level will be maintained., Respiratory function will remain adequate., Patient/ family verbilizes understanding of procedure., Procedure tolerated without complication., Recovers from procedure without complications.. 14:30:40 Procedure type changed to Cath procedure, Diagnostic procedure, LHC, LHC w/Coronaries w/Grafts, Sedation Charges, Moderate Sedation up to 15 minutes, PCI procedure, PTCA, PTCA Initial 14:32:05 Diagnostic Cath status Elective 14:32:08 Merline Pacheco RT(R) sent for patient. Start room use. 14:40:27 Signed procedure consent form obtained from patient. 14:40:32 Patient received from Pre/Post Procedure Room to CCL 3 Alert and oriented. Tansferred to table in Supine position. 14:40:33 Warm blankets applied, and elia hugger turned on for patient comfort. 14:40:34 Correct patient and procedure confirmed by team. 14:40:36 ECG and BP/O2 sat monitors applied to patient. 14:40:46 H&P Date Dictated: 10/22/2018 Within 30 days and on chart., H&P Addendum completed by physician on day of procedure. (MUST COMPLETE FOR ALL OUTPATIENTS). 14:40:53 Patient allergic to No known allergies 14:42:44 Pre-procedure instructions explained to patient. 14:42:45 Pre-op teaching completed and patient verbalized understanding. 14:42:46 Family in patients room. 14:42:47 Patient NPO since Midnight. 14:42:50 Is the patient allergic to Iodine/contrast media? No. 14:42:54 Is patient on blood thinner?Yes 14:42:56 ACC The patient was administered the following blood thiners within the last 24 hours: Xarelto 14:42:59 Patient diabetic? No. 14:43:02 Previous problem with sedation/anesthesia? No ? 14:43:03 Snore? Yes 14:43:06 Sleep apnea? Yes 14:43:07 Deviated septum? No 14:43:09 Opens mouth fully? Yes 14:43:10 Sticks out tongue? Yes 14:43:12 Airway obstruction? No ? 14:43:15 Dentures? No ? 14:43:19 Pre procedure: right dorsailis pedis pulse 1+ Palpable, but thready & weak; easily obliterated 14:43:22 Patient pain scale 0/10 ?. 14:43:37 IV patent on arrival in left forearm with 0.9% NaCl at [facility]. 14:43:40 Lab results completed and on chart. 14:43:44 Right groin area was prepped with chlora-prep and draped in sterile fashion 14:43:45 Alarms reviewed by R. N. 14:43:46 Sharps counted by scrub and verified by R.N. 14:47:02 Vital chart was started 14:47:06 Rhythm: sinus rhythm 14:47:08 Full Disclosure recording started 14:48:17 Baseline sample Acquired. 14:48:29 Use device set Femoral Dx 14:48:30 ACIST Syringe (27826) opened to sterile field. 14:48:30 Bag Decanter (2002S) opened to sterile field. 14:48:31 ACIST Hand Control (29541) opened to sterile field. 14:48:32 ACIST Manifold (73411) opened to sterile field. 14:48:32 Tegaderm 4 x 4 (1626W) opened to sterile field. 14:48:33 Medline Cath Pack ([id number]) opened to sterile field. 14:48:34 DIAGNOSTIC WIRE .035 260cm J wire (866964) opened to sterile field. 14:48:35 DIAGNOSTIC Multipack 5Fr catheter set (ZN2463) opened to sterile field. 14:48:36 SHEATH 5FR [place] (NMP225) opened to sterile field. 14:51:11 0.9% NaCl 100 ml/hr I.V. was administered by Jeff Aguirre RN; Per physician; 14:51:22 Oxygen 2 l/min etCO2 Nasal cannula was administered by Jeff Aguirre RN; for low 02 sats; 14:51:34 Heparin Flush Bag (1000units/500ml NS) 2 bags added to field was administered by Jeff Aguirre RN; used for procedure; 14:51:44 Lidocaine 2% 20ml vial added to field was administered by Jeff Aguirre RN; for local anesthetic; 14:54:38 --------ALL STOP TIME OUT------ 14:54:38 Final Timeout: patient, procedure, and site verified with staff and physician. All members of the team are in agreement. 14:54:40 Right groin site verified by team. 14:54:43 Maximum allowable Isovue 300 dose 300ml. Physician notified. (300ml for normal creatinines. For patients with creatinine of 1.7 or higher multiply weight(kg) x 5 divided by creatinine.) 14:54:48 Fire Safety Assessment: A--An alcohol-based skin anteseptic being used preoperatively., C--Open oxygen or nitrous oxide is being used., D--An ESU, laser, or fiber-optic light is being used. 14:54:53 Physical assessment completed. ASA score P 2 - A patient with mild systemic disease as per Jacinto Glover MD. 14:54:56 Sedation plan: IV Moderate Sedation Medication:Versed, Fentanyl 14:55:45 Versed 2 mg I.V. was administered by Jeff Aguirre RN; for sedation; 14:55:54 Fentanyl 100 mcg I.V. was administered by Jeff Aguirre RN; for sedation; 14:59:19 Zero performed for pressure channel P1 14:59:23 Procedure started. 14:59:52 Local anesthetic to right femoral artery with Lidocaine 2% by Jacinto Glover MD.INITIAL ACCESS ONLY 15:00:04 Zero performed for pressure channel P1 15:01:30 A 5 Fr sheath was inserted into the Right Femoral artery 15:02:02 A MULTIPACK JL 4.0 5Fr catheter was advanced over the wire and used for Procedure. 15:03:27 Catheter removed. 15:04:38 A DIAGNOSTIC AR MOD 5Fr Catheter ([id number]) was advanced over the wire and used for Right Coronary Angiography. 15:05:09 A DIAGNOSTIC AR MOD 5Fr Catheter (026962M) was advanced over the wire and used for SVG Angiography. TO RCA 15:06:14 A DIAGNOSTIC AR MOD 5Fr Catheter ([id number]) was advanced over the wire and used for SVG Angiography. TO CIRC 15:06:17 Catheter removed. 15:07:19 A DIAGNOSTIC IM 5Fr catheter (277451M) was advanced over the wire and used for Internal mammary arteriography. TO LAD 15:09:01 Catheter removed. 15:09:07 A MULTIPACK Pigtail 5 Fr catheter was advanced over the wire and used for LV Angiography. 15:10:19 LV gram done using LYNN 15:10:19 LV hemodynamics recorded. 15:10:23 Injector settings: Ml/sec: 10, Volume: 20, 15:10:28 EF : 55 % 15:10:40 Catheter removed. 15:10:43 Use device set GLOVER PCI 15:10:45 SHEATH 6FR [place] (JPD529) opened to sterile field. 15:10:52 TUBING High Pressure Extension Tubing (Adalberto) ([id number]) opened to sterile field. 15:10:53 INFLATOR Merit BasixCompak (EW9059) opened to sterile field. 15:10:54 BMW 300cm [place] 2 J wire (7264350N) opened to sterile field. 15:12:07 GUIDE 6FR XBLAD 3.5 catheter (35825132) opened to sterile field. 15:12:17 Sheath upsized to a 6 Fr Short. 15:13:17 6 Fr XBLAD 3.5 guide catheter was inserted over the wire 15:15:08 BMW wire advanced. 15:16:17 Heparin Bolus 7,000 units I.V. was administered by Jeff Aguirre RN; for anticoagulation; 15:17:42 Inflate balloon Inflation number: 1 A EMERGE OTW 2.5 x 12 balloon ([id number]) was prepped and advanced across the 1st Diag, then inflated to 10 AMY for 0:19 (min:sec). 15:18:41 Inflation number: 2 The EMERGE OTW 2.5 x 12 balloon ([id number]) was reinflated across the 1st Diag, to 12 AMY for 0:10 (min:sec). 15:19:36 Balloon removed over the wire. 15:19:38 Wire removed. 15:19:39 Guide catheter removed. 15:19:52 Sheath removed intact; hemostasis achieved with Exoseal to the Right Femoral artery. 15:19:59 Procedure ended.(Physican Out) 15:20:10 Fluoroscopy time 06.00 minutes. 15:20:14 Flurop Dose total: 491 15:20:14 Fluoroscopy dose: 491 mGy 15:20:22 Contrast amount:Isovue 370 130ml. 15:20:26 Sharps counted by scrub and verified by R.N. 15:20:28 Insertion/operative site no bleeding no hematoma. 15:20:33 Post-op/insertion site Right Femoral artery dressed using a 4 x 4 and Tegaderm. 15:20:36 Post right femoral artery:stable, clean and dry 15:20:38 Post Procedure Pulses reassessed and unchanged 15:20:42 Post-procedure physical assessment completed. ASA score P 2 - A patient with mild systemic disease as per Jacinto Glover MD. 15:20:44 Post procedure rhythm: unchanged. 15:20:48 Estimated blood loss: 10 ml 15:20:49 Post procedure instruction explained to patient.Patient verbalizes understanding. 15:20:49 Patient needs reinforcement of post procedure teaching. 15:20:54 Procedure Complication : No complications 15:20:56 See physician's report for complete and final results. 15:21:23 EXOSEAL 6Fr (EX600) opened to sterile field. 15:22:23 Procedure and supply charges have been captured, reviewed, submitted and are correct. 15:22:55 Plavix 600 mg P.O. was administered by Jeff Aguirre RN; for antiplatelet therapy; 15:24:15 Vital chart was stopped 15:24:16 Report given to Pre/Post Procedure Room. 15:24:18 Patient transfered to Pre/Post Procedure Room with Stretcher. 15:24:26 Procedure ended. 15:24:26 Full Disclosure recording stopped 15:24:30 End room use (Document Last) Intervention Summary Intervention Notes Time ActionType Lesion and Equipment Action# Pressure Duration Attributes Used 15:17:42 Inflate 1st Diag EMERGE OTW 1 10 00:19 balloon 2.5 x 12 balloon ([id number]) 15:18:41 Reinflate 1st Diag EMERGE OTW 2 12 00:10 balloon 2.5 x 12 balloon ([id number]) Device Usage Item Name Manufacture Quantity Catalog Number Hospital Part Current Min imal Lot# / Charge Number Stock Stock Serial# Code ACIST Acist 1 60253 195643 331281 528454 20 Syringe Medical (16462) Systems Inc Bag Decanter Microtek 1 2002S 975001 30223 588264 5 (2002S) Medical Inc. ACIST Hand Acist 1 38125 577803 505020 547331 5 Control Medical (57199) Systems Inc ACIST Acist 1 10707 698402 953971 712924 5 Manifold Medical (09058) Systems Inc Tegaderm 4 x 3M 1 1626W 844696 858116 257954 5 4 (1626W) Medline Cath Medline 1 [id number] 346091 96486 814837 5 Pack ([id number]) DIAGNOSTIC St Yuniel 1 647160 067147 582047 028783 30 WIRE .035 260cm J wire (242644) DIAGNOSTIC Cardinal 1 OA2491 024063 00386 751822 30 Multipack Health 5Fr catheter set (IE4781) SHEATH 5FR Terumo 1 COD725 726151 823268 246634 5 [place] (ERX075) MULTIPACK JL Cardinal 1 878331 5 4.0 5Fr Health catheter DIAGNOSTIC Cardinal 1 [id number] 630735 513085 019691 15 AR MOD 5Fr Health Catheter (442253F) DIAGNOSTIC Cardinal 1 625389J 335556 260160 332046 5 IM 5Fr Health catheter (187066A) MULTIPACK Cardinal 1 441658 5 Pigtail 5 Fr Health catheter SHEATH 6FR Terumo 1 UYM639 806870 081128 658756 40 [place] (JTM651) TUBING High Merit 1 [id number] 570498 32158 008140 10 Pressure Medical Extension Tubing (Glover) (IT0237G) INFLATOR Merit 1 LI8232 992353 158855 771420 15 Merit Medical BasixCompak (OM3899) BMW 300cm Randall 1 [id number] 575368 148213 571467 5 [place] 2 Vascular J wire (4585580W) GUIDE 6FR Cardinal 1 99134336 577040 548002 560808 10 XBLAD 3.5 Health catheter (64980662) EMERGE OTW [place] 1 [id number] 952573 919019 709521 5 [id number] 2.5 x 12 Scientific balloon ([id number]) EXOSEAL 6Fr Cardinal 1 EX600 663772 526158 121042 10 (EX600) Health Signature Audit [facility] Stage Time Signature Unsigned Intra-Procedure 10/22/2018 Merline 3:25:13 PM Counts RT(R) Signatures Monitor : Aliyah Menjivar Signature : RT Date : Time : Monitor : Merline Signature : Counts RT Date : Time : [place] [address] [place] [address]
[~2018-10-22 11:08] MED LIST changes: -HYDROCODON-ACE1 EA10 PO; -PLAVIX75 MG PO; -PREDNISONE10 MG PO; -XARELTO10 MG PO
[2018-10-22] MEDS ORDERED: PREDNISONE10 MG PO (11:26)
[2018-10-22] MEDS ORDERED: SIMPONI (11:27)
[2018-10-22 11:40] VITALS: BP 131/87; Ht 182.9 cm; Wt 89.5 kg
[2018-10-22 11:44] LABS: BASOPHILS 0.5 % (0-2); EOSINOPHILS 1.7 % (0-7); HEMATOCRIT 44.4 % (42.0-54.0); HEMOGLOBIN 15.4 g/dL (13.5-17.5); IMMATURE GRANULOCYTES 0.1 % (0-5); LYMPHOCYTES 30.8 % (15-50); MCH 30.2 pg (26.0-34.0); MCHC 34.7 g/dL (31.0-37.0); MCV 87.1 fL (80.0-100.0); MEAN PLATELET VOLUME 9.2 fL (7.4-10.4); MONOCYTES 8.9 % (2-11); PLATELET COUNT 182 10x3/uL (130-400); RDW 12.9 % (11.5-14.5); WBC 7.7 10x3/uL (4.8-10.8)
[2018-10-22 11:56] LABS: CALC OSMOLALITY 282 mosm/kg (275-300); CALCIUM 8.9 mg/dL (8.5-10.1); CHLORIDE - SERUM 107 mmol/L (98-107); CREATININE - SERUM 0.7 mg/dL (0.6-1.3); GLUCOSE 90 mg/dL (74-106); POTASSIUM - SERUM 3.6 mmol/L (3.5-5.1); SODIUM 141 mmol/L (136-145); UREA NITROGEN 17 mg/dL (7-18); eGFR NON AFRICAN AMERICAN > 90 mL/min (90-120)
--- NOTE | 2018-10-22 15:35 | NUR ---
PATIENT ARRIVED TO ROOM. VSS ON ROOM AIR. RIGHT GROIN DRESSING IS CDI, NO S/S OF BLEEDING OR HEMATOMA. NO C/O PAIN, NUMBNESS, OR TINGLING. WILL CONTINUE TO MONITOR.
[2018-10-22] MEDS ORDERED: PLAVIX75 MG PO (15:48)
[2018-10-22] MEDS ORDERED: XARELTO10 MG PO (15:48)
--- NOTE | 2018-10-22 15:50 | NUR ---
PATIENT AWAKE, DRINKING WATER. VSS ON ROOM AIR. PHYSICIAN PRESENT AT BEDSIDE TO UPDATE PATIENT AND SPOUSE. RIGHT GROIN DRESSING IS CDI, NO S/S OF BLEEDING OR HEMATOMA. NO SHORTNESS OF BREATH. NO C/O PAIN, NUMBNESS, OR TINGLING.
--- NOTE | 2018-10-22 16:20 | NUR ---
PATIENT RESTING, VSS ON ROOM AIR. RIGHT GROIN DRESSING IS CDI, NO S/S OF BLEEDING OR HEMATOMA. NO C/O PAIN, NUMBNESS, OR TINGLING. SPOUSE PRESENT AT BEDSIDE. WILL CONTINUE TO MONITOR.
--- NOTE | 2018-10-22 16:50 | NUR ---
PATIENT RESTING, VSS ON ROOM AIR. RIGHT GROIN DRESSING IS CDI, NO S/S OF BLEEDING OR HEMATOMA. NO C/O PAIN, NUMBNESS, OR TINGLING. NO N/V.
--- NOTE | 2018-10-22 17:20 | NUR ---
PATIENT AWAKE, RIGHT GROIN DRESSING IS CDI, NO S/S OF BLEEDING OR HEMATOMA. TOLERATING PO FLUIDS. SPOUSE PRESENT AT BEDSIDE. VSS ON ROOM AIR. PATIENT C/O LOWER BACK PAIN (HAS CHRONIC BACK PAIN), RATES IT A 3 ON A SCALE OF 1-10.
--- NOTE | 2018-10-22 17:50 | NUR ---
PATIENT GIVEN ACETAMINOPHEN FOR BACK PAIN ORDERED. VSS ON ROOM AIR. RIGHT GROIN DRESSING IS CDI, NO S/S OF BLEEDING OR HEMATOMA. NO C/O PAIN, NUMBNESS, OR TINGLING. SPOUSE PRESENT AT BEDSIDE.
--- NOTE | 2018-10-22 18:19 | NUR ---
HEAD OF BED ELEVATED TO 30 DEGREES, RIGHT GROIN DRESSING IS CDI, NO S/S OF BLEEDING OR HEMATOMA. PATIENT STATES THAT PAIN IN LOWER BACK IS "FEELING A LITTLE BETTER". PATIENT GIVEN TURKEY SANDWICH AND WATER, NO N/V. VSS ON ROOM AIR.
--- NOTE | 2018-10-22 18:50 | NUR ---
HEAD OF BED AT 90 DEGREES, RIGHT GROIN DRESSING IS CDI, NO S/S OF BLEEDING OR HEMATOMA. NO C/O PAIN, NUMBNESS, OR TINGLING. VSS ON ROOM AIR. IV REMOVED. PATIENT TOLERATING PO FLUIDS AND FOOD, NO N/V.
--- NOTE | 2018-10-22 19:20 | NUR ---
WRITTEN AND VERBAL EDUCATION REGARDING DISCHARGE INSTRUCTIONS AND MEDICATION COMPLIANCE GIVEN TO PATIENT AND SPOUSE, BOTH VOICE UNDERSTANDING. PATIENT TRANSPORTED VIA WHEELCHAIR TO CAR WITH SPOUSE DRIVING, ALL BELONGINGS WITH PATIENT.
== END 2018-10-22 19:20 | disposition home or self-care (01) ==
LOC: D.CATH 11:08
PROVIDERS: ATTEND Internal Medicine Cardiovascular Disease
DX: I25.119 Atherosclerotic heart disease of native coronary artery with unspecified angina pectoris (principal); T82.855A Stenosis of coronary artery stent, initial encounter; Z01.812 Encounter for preprocedural laboratory examination

== ENCOUNTER 2018-10-31 07:30 | Outpatient (CLI) | payer BC | END 2018-10-31 17:20 | disposition home or self-care (01) | LOC: D.CATH 07:30 | DX: I25.10 Atherosclerotic heart disease of native coronary artery without angina pectoris (principal); R94.30 Abnormal result of cardiovascular function study, unspecified; I10 Essential (primary) hypertension; E78.5 Hyperlipidemia, unspecified ==